=== PATIENT | female | born 1985 | race Caucasian/White ===

== ENCOUNTER 2017-05-23 14:36 | Emergency (ER) | payer MEDICAID ==
[~2017-05-23] VITALS: Ht 175.3 cm; Wt 118.8 kg
[2017-05-23] MEDS ORDERED: IBUP400T18 PO (15:43)
--- NOTE | 2017-05-23 15:43 | PHYS DOC ---
Past History Past Medical History: Depression, Seizure Past Surgical History: Cholecystectomy Drug Use: None Adult General Chief Complaint Chief Complaint: ABDOMINAL PAIN HPI HPI 32-year-old female presenting to the emergency department today with pain from a seroma that occurred after a . She is status post approximately 3 months ago. The pain is mild intermittent nonradiating and without alleviating factors. She denies any pain deeper down. She denies nausea vomiting polyuria dysuria abdominal pain and vaginal bleeding. She denies being . Review of systems is negative for chest pain shortness of breath fevers chills nausea vomiting. All other review of systems is negative unless otherwise noted in history of present illness. ED course: 32-year-old female presenting to the emergency department today because she has a seroma that causes her mild discomfort. She has a plan to follow-up with her doctor in the next 3-4 days but is requesting a note not to lift at work. I felt this to be reasonable and provided her with a work note. As far as her pain is concerned her abdomen is soft and nontender. She does have a small seroma at the postsurgical site that does not appear infected. No overlying cellulitis. Not warm to touch. Otherwise the remainder of her exam is unremarkable. She was subsequent discharged home to follow-up with her regular doctor for hospital seroma. The patient was then discharged home in stable condition to follow up with their primary care physician over the next 2-3 days. They were to return if their symptoms worsened or if they were concerned for any reason. [id number] discharge instructions and return precautions were given. Patient's questions were answered to their satisfaction. Patient is comfortable plan. Review of Systems Review of Systems SEE ABOVE Physical Exam Physical Exam Constitutional: Well developed, well nourished, no acute distress, non-toxic appearance. [] HENT: Normocephalic, atraumatic, bilateral external ears normal, oropharynx moist, no oral exudates, nose normal. [] Eyes: PERRLA, EOMI, conjunctiva normal, no discharge. [] Neck: Normal range of motion, no tenderness, supple, no stridor. [] Cardiovascular:Heart rate regular rhythm, no murmur [] Lungs & Thorax: Bilateral breath sounds clear to auscultation [] Abdomen: Bowel sounds normal, soft, no tenderness, no masses, no pulsatile masses. [] Skin: Warm, dry, no erythema, no rash. [] Back: No tenderness, no CVA tenderness. [] Extremities: No tenderness, no cyanosis, no clubbing, ROM intact, no edema. [] Neurologic: Alert and oriented X 3, normal motor function, normal sensory function, no focal deficits noted. [] Psychologic: Affect normal, judgement normal, mood normal. [] Current Patient Data Vital Signs Vital Signs Date Time Temp Pulse Resp B/P (MAP) Pulse Ox O2 Delivery O2 Flow Rate FiO2 05/23/17 14:55 98.6 98 20 98 EKG EKG [] Radiology/Procedures Radiology/Procedures [] Course & Med Decision Making Course & Med Decision Making Pertinent Labs and Imaging studies reviewed. (See chart for details) [] Dragon Disclaimer Dragon Disclaimer This chart was dictated in whole or in part using Voice Recognition software in a busy, high-work load, and often noisy Emergency Department environment. It may contain unintended and wholly unrecognized errors or omissions. Departure Departure: Impression: Primary Impression: Seroma Disposition: HOME, SELF-CARE Condition: STABLE Referrals: NON,STAFF (PCP) Additional Instructions: Thank you for allowing us to participate in your care today. Followup with your primary care physician in 3 days if your symptoms do not improve. Call your Primary Doctor tomorrow and inform them of your visit today. If you do not have a primary care provider you can ask for a list of our primary care providers. Return to the emergency department you have any new or concerning findings. This should be evaluated by the primary care physician and any necessary consulting services for continued management within a few days after discharge. Return to emergency room if you have any new or concerning symptoms including but not limited to fever, chills, nausea, vomiting, intractable pain, any new rashes, chest pain, shortness of air, uncontrolled bleeding, difficulty breathing, and/or vision loss. Scripts Ibuprofen (IBUPROFEN) 400 Mg Tablet 1 TAB PO PRN Q8HRS Y for PAIN, #20 TAB Prov: PURNIMA BARROS MD 05/23/17 PURNIMA BARROS MD May 23, 2017 15:43
[2017-05-23 15:46] VITALS: BP 137/74
== END 2017-05-23 15:47 | disposition home or self-care (01) ==
LOC: ER 14:36
DX: K91.873 Postprocedural seroma of a digestive system organ or structure following other procedure (principal); Z90.49 Acquired absence of other specified parts of digestive tract
CPT/HCPCS: 99282